=== PATIENT | female | born 1960 ===

== ENCOUNTER → 2018-06-29 15:44 | Outpatient (REF) | payer MEDICAID, SELFPAY ==
[2018-06-29 15:59] LABS: Abs Immature Grans 0.01 k/cumm (0.0-0.09); Absolute Basophil Count 0.04 k/cumm (0.0-0.2); Absolute Lymphocyte Count 0.96 k/cumm (1.2-3.4); Absolute Monocyte Count 0.39 k/cumm (0.11-0.7); Absolute Neutrophil Count 2.91 k/cumm (1.2-6.7); Basophils % 0.9; Eosinophils % 4.4; HCT 30.1 % (36.0-46.0); HGB 9.1 g/dL (12.0-15.5); Immature Grans % 0.2; Lymphocytes % 21.3; Mean Corp. HGB Concentration 30.2 g/dL (32.0-36.0); Mean Corpuscular Volume 95.9 fL (80-95); Mean Platelet Volume 12.6 fL (8.0-11.0); Monocytes % 8.6; Neutrophils % 64.6; Platelet Count 114 x1000/uL (130-400); RBC 3.14 m/cumm (4.00-5.20); RBC Distribution Width 17.1 % (11.7-14.6); White Blood Cell Count 4.51 k/cumm (4.4-10.8)
[2018-06-29 16:09] LABS: ALT 13 U/L (12-78); AST 20 U/L (15-37); Albumin 3.6 g/dL (3.4-5.0); Alkaline Phosphatase 113 U/L (46-116); Anion Gap 7.5 mmol/L (3-11); BUN 30 mg/dL (7-18); Bilirubin, Total 0.5 mg/dL (0.2-1.0); CO2 31.5 mmol/L (21.0-32.0); Calcium 8.2 mg/dL (8.5-10.1); Chloride 99 mmol/L (98-107); Estimated GFR 9.13 (mL/min/1.73m2); Glucose 228 mg/dL (70-100); Magnesium 2.5 mg/dL (1.8-2.4); Potassium 4.2 mmol/L (3.5-5.1); Sodium 138 mmol/L (136-145); Total Protein 6.7 g/dL (6.4-8.2)
[2018-06-29 16:14] LABS: CREATININE 4.87 mg/dL (0.55-1.02)
[2018-06-29 16:17] LABS: Anisocytosis 1+
[2018-06-29 16:18] LABS: Macrocytosis 2+; Microcytosis 1+; Poikilocytes 1+
[2018-06-29 17:12] LABS: Hemoglobin A1C 5.3 % (4.5-6.2)
== END ==
LOC: LBN 15:44
PROVIDERS: PCP Internal Medicine; Visit Provider Family Medicine
DX: I10 Essential (primary) hypertension (principal); E11.40 Type 2 diabetes mellitus with diabetic neuropathy, unspecified; N18.9 Chronic kidney disease, unspecified; R53.83 Other fatigue
CPT/HCPCS: 80053; 83036; 83735; 85025